=== PATIENT | female | born 1935 | race Caucasian/White ===

== ENCOUNTER 2017-03-31 17:45 | Observation (INO) | payer MEDICARE, BC ==
[2017-03-28 17:42] LABS: ALBUMIN 3.6 G/DL (3.5-5.0); BUN (BLOOD UREA NITROGEN) 22 MG/DL (6-23); CALCIUM, SERUM 9.2 MG/DL (8.5-10.4); CHLORIDE, SERUM 99 MMOL/L (96-112); CO2 (CARBON DIOXIDE) 31 MMOL/L (24-34); CREATININE 0.98 MG/DL (0.55-1.02); GFR AFRICAN AMERICAN 64 ML/MIN (>=60); GFR NON AFRICAN AMERICAN 55 ML/MIN (>=60); GLUCOSE, SERUM 98 MG/DL (60-99); PHOSPHORUS, SERUM 3.2 MG/DL (2.5-4.5); SODIUM, SERUM 139 MMOL/L (135-148)
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
--- NOTE | ~2017-03-31 | DS ---
Discharge Summary [facility] [address] [facility] [place]. [address] NAME: ALEX PEREIRA : 39 STATUS : ADM Tolu PAT#: [id number] AGE: 81 ADM/REG DATE : 03/31/17 MR#: [id number] REPORT SERV DATE: 04/01/17 DICTATED BY: DATE: REPORT STATUS : Draft TRANSCRIBED BY: MODL DATE: 04/01/17 ADMISSION DATE: 03/31/2017 DISCHARGE DATE: 04/01/2017 DISCHARGE DIAGNOSES: 1. Transient ischemic attack. 2. Dysarthria. 3. Chronic achalasia. 4. Chronic asthma. 5. Hypertension. 6. History of migraines with aura. 7. Hyperlipidemia. CONSULTATIONS: Neurology, Dr. Redding. PROCEDURES AND IMAGIN. 03/31/2017, portable chest x-ray showed no new focal airspace disease. 2. 03/31/2017, CT of the brain without contrast showed. a. No acute CVA or other acute intracranial pathology. b. Stable moderate diffuse cerebral involutional changes and mild deep white matter chronic microvascular ischemic change. c. 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 3. 04/01/2017, carotid blood flow studies showed category 1 carotid arteries bilaterally with no evidence of flow-significant stenosis. HOSPITAL COURSE: Please refer to Dr. Carmelita Saavedra's H and P dictated on 03/31/2017 for complete details regarding the patient's admission. In brief, the patient was admitted by Dr. Saavedra for initial workup and management of slurred speech and garbled speech with some onset of dizziness that had occurred on the day of admission and lasted approximately an hour and a half. During the patient's stay, she has not had anymore difficulty with speech. The patient does have an extensive history of migraines, and it is questionable whether this was a presentation of TIA versus a complication of her migraine headache. The patient was seen by Neurology, and it was recommended for the patient to DC hormone replacement therapy, to take a full dose aspirin daily, and a prescription was given for Lipitor 40 mg daily. The patient's echo showed normal left ventricular and right ventricular size and function with an ejection fraction of 55%. The aortic valve showed sclerosis without stenosis. The patient does have chronic achalasia for which she takes Carafate and Nexium and has to chop her pills finely to be able to swallow them. The patient is well-controlled with her chronic asthma by Dulera, Singulair, nebulizers, and Flonase. The patient does have a history of hypertension that has been well controlled while she is here. The patient has had orthostatic blood pressures taken which have remained consistent with lying blood pressures being 146/63, sitting 145/65, and standing 140/67. The patient has had no episodes of dysarthria while she has been here. Discharge Summary [address] [address] NAME: ALEX PEREIRA : 39 STATUS : ADM Tolu PAT#: [id number] AGE: 81 ADM/REG DATE : 03/31/17 MR#: [id number] REPORT SERV DATE: 04/01/17 DICTATED BY: DATE: REPORT STATUS : Draft TRANSCRIBED BY: JAMES DATE: 04/01/17 PHYSICAL EXAMINATION: VITAL SIGNS: Blood pressure is 151/67, O2 saturation is 97% on room air, respirations are 19, temperature is 97.6, heart rate is 68. HEENT: Head is atraumatic, normocephalic. Pupils are equal, round, reactive to light and accommodation. Sclerae are clear and nonicteric. NECK: Supple with no obvious lymphadenopathy or thyromegaly. Neck veins are flat. CARDIAC: S1 and S2 with no obvious murmurs, rubs, or gallops. LUNGS: Clear to auscultation with normal respiratory effort. GI: Abdomen is soft and nontender with a large pannus. Active bowel sounds in all four quadrants. Normal bowel habitus. No palpable organomegaly. EXTREMITIES: The patient has minimal left lower extremity edema to singh. Right lower extremity exhibits no edema. The patient has dorsalis pedis and posterior tibial pulses that are palpable bilaterally. No cyanosis noted. MUSCULOSKELETAL: Moves all extremities x4. She is ambulatory with a cane. SKIN: Warm and dry with normal color and turgor. NEURO/PSYCH: The patient is alert and oriented x4, pleasant and cooperative. Cranial nerves 2 through 12 are grossly intact. DISCHARGE MEDICATIONS: 1. Zyloprim 150 mg daily and 150 mg p.r.n. for flare-ups. 2. Aspirin 325 mg daily. 3. Ibuprofen 100 mg daily. 4. Flonase one spray in each nostril daily. 5. Singulair 10 mg daily. 6. Multivitamins 1 tab daily. 7. Nexium 40 mg daily. 8. Symbicort 160/4.5 two puffs twice daily as needed for shortness of breath. 9. Tenormin 25 mg daily and 25 mg p.r.n. when her heart rate is abnormal. 10.Triamterene/hydrochlorothiazide 37.5/25 twice daily. 11.Carafate 1 g suspension 4 times a day p.r.n. indigestion. 12.Citrucel 19 g p.r.n. stomach pain. 13.Lasix 20 mg daily. 14.Potassium chloride 20 mEq three times daily. 15.Combivent. 16.Respimat 2 puffs daily p.r.n. shortness of breath. 17.Nystatin powder twice daily p.r.n. to abdominal skin folds. 18.Nystatin cream twice daily p.r.n. yeast, apply to abdominal skin folds. 19.Albuterol 2 puffs twice a day as needed for shortness of breath. 20.Meclizine 25 mg p.r.n. for vertigo. 21.Lipitor 40 mg p.o. at bedtime. ALLERGIES: THE PATIENT IS ALLERGIC TO PHENYLEPHRINE, CHLORPHENIRAMINE, CIPROFLOXACIN, MOXIFLOXACIN, PENICILLIN, SULFA, PSEUDOEPHEDRINE, CEPHALEXIN, LORATADINE, STREPTOMYCIN, EPINEPHRINE, ADHESIVE, LATEX, NEOGRAM, PROLENE SUTURES, AND SODIUM PENTOTHAL. DISCHARGE INSTRUCTIONS: The patient is to follow up with Dr. Morales in one week regarding confusion and possible TIA. The patient is to have an MRI without contrast outpatient at Discharge [address] [address] NAME: ALEX PEREIRA : 39 STATUS : ADM Tolu PAT#: [id number] AGE: 81 ADM/REG DATE : 03/31/17 MR#: [id number] REPORT SERV DATE: 04/01/17 DICTATED BY: DATE: REPORT STATUS : Draft TRANSCRIBED BY: MODL DATE: 04/01/17 [facility] for confusion and aphasia. The patient is to follow up with Dr. Horner in three weeks regarding TIA. The patient is to stop hormone replacement injection. The patient is to follow up with [facility] in four to six weeks regarding confusion, aphasia, and migraine. Should the patient develop anymore aphasia, dizziness, drooping, or slurred speech, she is to present to the ER. Approximately 40 minutes have been spent coordinating discharge care of this patient including [id number] encounter and summarization of the discharge. SLC/MODL Fifi Ramirez NP / [id number] CC: Carroll Burnett M.D.
[2017-03-31 17:22] LABS: BASOPHILS 0.2 %; BASOPHILS ABSOLUTE 0.02 10/3/uL (0.0-0.16); EOSINOPHILS 0.5 %; EOSINOPHILS ABSOLUTE 0.04 10/3/uL (0.0-0.53); ER CBC TAT 0 Hrs 03 Mins; HEMATOCRIT 37.2 % (36.0-48.0); HEMOGLOBIN 12.1 g/dL (12.0-16.0); IMMATURE GRANULOCYTES 0.9 %; IMMATURE GRANULOCYTES ABSOLUTE 0.08 10/3/uL (0.0-0.11); LYMPHOCYTES 12.7 %; LYMPHOCYTES ABSOLUTE 1.13 10/3/uL (0.67-4.30); MANUAL DIFF NO %; MEAN CORPUS HGB CONC 32.5 g/dL (32.0-36.0); MEAN CORPUSCULAR HEMOGLOB 29.3 pg (26.0-34.0); MEAN CORPUSCULAR VOLUME 90.1 fL (80-100); MONOCYTES 4.2 %; MONOCYTES ABSOLUTE 0.37 10/3/uL (0.21-1.20); NEUTROPHILS 81.5 %; NEUTROPHILS ABSOLUTE 7.23 10/3/uL (2.02-8.40); PLATELET COUNT 271 10/3/uL (150-400); RBC DISTRIBUTION WIDTH 14.9 % (12.0-16.0); RED CELL COUNT 4.13 10/6/uL (4.0-5.6); WHITE BLOOD CELLS 8.9 10/3/uL (4.5-10.5)
[2017-03-31 17:32] LABS: INTERNATIONAL NORMAL RATI 1.1 UNITS (-); PARTIAL THROMBO TIME 35.7 SEC (22.5-37.2); PROTIME (NOT ORD) 14.3 SEC (12.0-14.5)
[2017-03-31 17:42] LABS: ALBUMIN 3.6 G/DL (3.5-5.0); ALKALINE PHOSPHATASE 91 U/L (45-117); BUN (BLOOD UREA NITROGEN) 23 MG/DL (6-23); CALCIUM, SERUM 8.9 MG/DL (8.5-10.4); CHLORIDE, SERUM 103 MMOL/L (96-112); CO2 (CARBON DIOXIDE) 30 MMOL/L (24-34); CREATININE 1.21 MG/DL (0.55-1.02); GFR AFRICAN AMERICAN 49 ML/MIN (>=60); GFR NON AFRICAN AMERICAN 43 ML/MIN (>=60); GLOBULIN 3.7 G/DL (2.5-4.1); GLUCOSE, SERUM 161 MG/DL (60-99); POTASSIUM, SERUM 3.6 MMOL/L (3.5-5.3); SGOT(AST) 18 U/L (5-40); SGPT(ALT) 23 U/L (5-65); SODIUM, SERUM 139 MMOL/L (135-148); TOTAL BILIRUBIN 0.6 MG/DL (0-1.2); TOTAL PROTEIN 7.3 G/DL (6.0-8.5); TROPONIN I <0.02 NG/ML (<0.05)
[~2017-03-31 17:45] MED LIST: ATEN25 PO; ATEN50 PO; AZMACORT INH; CARASPUDL PO; CITRUCEL500 MG PO; CITRUCELSF PO; COMBIVENT INH; DEPO-ESTRADIO1 MG/ML IM; DYAZIDE1 CAP PO; FLUCON1 PO; HYDROCORT TOP; KLOR-CON M2020 MEQ PO; L20 PO; L40 PO; LORT7 PO; MAGCIT PO; MAX25 PO; MULTIPLE VIT PO; MULTIVITAMI1 PO; NEXIUM40 PO; NYSTATIN TOP; NYSTATIN-TRIAMC15 GM TOP; REFRES1; SINGULAIR1 PO; SINGULAIR5 PO; STEROID; SUCR PO; SYMBICORT 160/41 INH INH; Z300 PO
[2017-03-31 18:38] LABS: ASCORBIC ACID (UR NOT ORDER) NEG (NEG); BILIRUBIN, URINE NEGATIVE (NEG); ER URINALYSIS TAT 0 Hrs 25 Mins; KETONE, URINE NEGATIVE (NEG); LEUKOCYTE ESTERASE(NOT OR NEG (NEG); NITRITE (URINE) NEG (NEG); WBC (NOT ORDERED) (RFLEX) 2 (0-5)
[2017-03-31] MEDS ORDERED: ATEN25 PO ×2 (21:10→21:11)
[2017-03-31] MEDS ORDERED: NEXIUM40 PO (21:10)
[2017-03-31] MEDS ORDERED: MAX25 PO (21:13)
[2017-03-31] MEDS ORDERED: CARASPUDL PO (21:14)
[2017-03-31] MEDS ORDERED: Z300 PO ×2 (21:15)
[2017-03-31] MEDS ORDERED: MULTIVIT/MIN PO (21:15)
[2017-03-31] MEDS ORDERED: CITRUCELSF PO (21:17)
[2017-03-31] MEDS ORDERED: SINGULAIR1 PO (21:17)
[2017-03-31] MEDS ORDERED: L20 PO (21:18)
[2017-03-31] MEDS ORDERED: KLOR-CON M2020 MEQ PO (21:18)
[2017-03-31] MEDS ORDERED: ASA5GR PO (21:19)
[2017-03-31] MEDS ORDERED: SYMBICORT 160/41 INH INH (21:20)
[2017-03-31] MEDS ORDERED: DEPO-ESTRAD5 MG/1 ML IM (21:20)
[2017-03-31] MEDS ORDERED: COMBIVENT RESPIM4 GM INH (21:21)
[2017-03-31] MEDS ORDERED: NYSTATPOW TOP (21:22)
[2017-03-31] MEDS ORDERED: MYCOSCROI TOP (21:22)
[2017-03-31] MEDS ORDERED: FLONASE NAS ×2 (21:23)
[2017-03-31] MEDS ORDERED: PROAIR HFA INH (21:24)
[2017-03-31] MEDS ORDERED: ADVIL PO (21:26)
[2017-03-31] MEDS ORDERED: MCZ25 PO (21:29)
[2017-04-01 05:05] LABS: BUN (BLOOD UREA NITROGEN) 20 MG/DL (6-23); CALCIUM, SERUM 9.2 MG/DL (8.5-10.4); CHLORIDE, SERUM 104 MMOL/L (96-112); CHOL/HDL RATIO(NOT ORDER) 3.3 (0-5); CHOLESTEROL 183 MG/DL (< 200); CO2 (CARBON DIOXIDE) 28 MMOL/L (24-34); CREATININE 1.14 MG/DL (0.55-1.02); GFR AFRICAN AMERICAN 53 ML/MIN (>=60); GFR NON AFRICAN AMERICAN 46 ML/MIN (>=60); GLUCOSE, SERUM 118 MG/DL (60-99); HDL CHOLESTEROL 56 MG/DL (> 49); LDL CHOLESTEROL 93 MG/DL (< 130); NON-HDL CHOLESTEROL 127 MG/DL (< 160); POTASSIUM, SERUM 3.7 MMOL/L (3.5-5.3); SODIUM, SERUM 141 MMOL/L (135-148); TRIGLYCERIDE 172 MG/DL (< 150)
[2017-04-01 16:58] LABS: C-REACTIVE PROTEIN 4.8 MG/L (<8.0)
[2017-04-01] MEDS ORDERED: LIPITOR40 PO (19:03)
== END 2017-04-01 20:00 | disposition home or self-care (01) ==
LOC: ER 17:45 → CDU1 21:41 → CDU2 22:39
PROVIDERS: Emergency Medicine; Internal Medicine
DX: G45.9 Transient cerebral ischemic attack, unspecified (principal); R47.1 Dysarthria and anarthria; K22.0 Achalasia of cardia; J44.9 Chronic obstructive pulmonary disease, unspecified; I10 Essential (primary) hypertension; G43.109 Migraine with aura, not intractable, without status migrainosus; E78.5 Hyperlipidemia, unspecified; Z79.82 Long term (current) use of aspirin; Z79.1 Long term (current) use of non-steroidal anti-inflammatories (NSAID); Z79.51 Long term (current) use of inhaled steroids; Z79.899 Other long term (current) drug therapy; Z88.8 Allergy status to other drugs, medicaments and biological substances; Z88.1 Allergy status to other antibiotic agents; Z88.4 Allergy status to anesthetic agent; Z91.048 Other nonmedicinal substance allergy status; Z91.040 Latex allergy status; Z88.2 Allergy status to sulfonamides; Z88.0 Allergy status to penicillin
CPT/HCPCS: 70450; 71010; 80048; 80053; 80061; 80069; 81001; 83036; 83735; 84443; 84484; 84550; 85025; 85610; 85652; 85730; 86140; 93005; 93306; 93880; 94640; 99285; A9270-GY; G0378